=== PATIENT | female | born 2000 | race Caucasian/White ===

== ENCOUNTER 2022-04-22 20:00 | Observation (INO) | payer OTHER ==
[~2022-04-22] VITALS: Ht 157.5 cm; Wt 92.5 kg
[2022-04-22] MEDS ORDERED: FERR325E14 PO (21:22)
[2022-04-22] MEDS ORDERED: PRETAB PO (21:22)
[2022-04-22] MEDS ORDERED: OSC500 PO (21:22)
[2022-04-22 21:23] VITALS: BP 128/65
== END 2022-04-22 22:10 | disposition home or self-care (01) ==
LOC: MLD 20:00
PROVIDERS: ADMIT Obstetrics & Gynecology; ATTEND Obstetrics & Gynecology
DX: O26.893 Other specified pregnancy related conditions, third trimester (principal); R10.13 Epigastric pain; R10.9 Unspecified abdominal pain; Z3A.30 30 weeks gestation of pregnancy
CPT/HCPCS: 76815; G0378; Q0092

== ENCOUNTER 2022-04-24 19:10 | Observation (INO) | payer OTHER ==
[~2022-04-24] VITALS: Ht 160 cm; Wt 92.5 kg
[~2022-04-24 19:10] MED LIST: FERR325E14 PO; OSC500 PO; PRETAB PO
[2022-04-24 21:09] VITALS: BP 110/64
[2022-04-24] MEDS ORDERED: PANTOPRAZOLE 40 MG TABEC PO SCH (21:35)
[2022-04-24] MEDS ORDERED: FAMOTIDINE 20 MG TAB PO SCH (21:35)
== END 2022-04-24 23:40 | disposition home or self-care (01) ==
LOC: MFCC 19:10
PROVIDERS: ADMIT Obstetrics & Gynecology; ATTEND Obstetrics & Gynecology
DX: O26.893 Other specified pregnancy related conditions, third trimester (principal); R10.13 Epigastric pain; O99.891 Other specified diseases and conditions complicating pregnancy; M54.9 Dorsalgia, unspecified; Z3A.30 30 weeks gestation of pregnancy
CPT/HCPCS: G0378

== ENCOUNTER 2022-04-26 01:29 | Inpatient (IN) | payer OTHER ==
[~2022-04-26] VITALS: Ht 152.4 cm; Wt 81.6 kg
[2022-04-26] MEDS: LACTATED RINGERS 1,000 ML IV SCH ×3 (01:00→16:27)
[2022-04-26] MEDS ORDERED: PANTOPRAZOLE 40 MG TABEC PO ONE (02:54)
[2022-04-26] MEDS ORDERED: FAMOTIDINE 20 MG TAB ONE (02:55)
[2022-04-26] MEDS ORDERED: MORPHINE SULFATE 10 MG/ML VIAL ONE ×2 (08:18→16:18)
[2022-04-26] MEDS: MORPHINE SULFATE 5 MG/ML VIAL IVP PRN ×2 (08:22→16:22)
[2022-04-26] MEDS: ONDANSETRON 4 MG/2 ML VIAL IVP PRN ×2 (08:26→16:23)
[2022-04-26] MEDS: FAMOTIDINE 20 MG TAB PO SCH ×2 (08:34→08:41)
[2022-04-26] MEDS: PANTOPRAZOLE 40 MG TABEC PO SCH ×2 (08:34→08:41)
[2022-04-26] MEDS: BETAMETH ACET/BETAMETH NA PH 30 MG/5 ML VIAL IM SCH (09:27)
[2022-04-26] MEDS ORDERED: diphenhydrAMINE 50 MG/ML VIAL IVP ONE (10:10)
[2022-04-26] MEDS: PIPERACILLIN/TAZOBACTAM 3.375 GM in DEXTROSE 5% 50 ML IV SCH ×2 (13:06→21:00)
[2022-04-26] MEDS ORDERED: CAMERA MC ONE (17:16)
[2022-04-27] MEDS: LACTATED RINGERS 1,000 ML IV SCH ×2 (01:00→09:22)
[2022-04-27] MEDS ORDERED: ACETAMINOPHEN 325 MG TAB PO PRN (03:05)
[2022-04-27] MEDS ORDERED: ACETAMINOPHEN 325 MG TAB ONE (03:06)
[2022-04-27] MEDS: PIPERACILLIN/TAZOBACTAM 3.375 GM in DEXTROSE 5% 50 ML IV SCH (05:01)
--- NOTE | 2022-04-27 07:06 | NUR ---
PATIENT HAS BEEN SCREENED AND CATEGORIZED LOW NUTRITION RISK. PATIENT WILL BE SEEN WITHIN 7 DAYS OF ADMISSION. 05/03/22 CRISTEL VEGA MS, RDN
[2022-04-27] MEDS: BETAMETH ACET/BETAMETH NA PH 30 MG/5 ML VIAL IM SCH (09:28)
== END 2022-04-27 12:00 | disposition home or self-care (01) | DRG 566 ==
LOC: MLD 01:29 → OBSVTOIN 09:13 → MFCC 10:39
PROVIDERS: ADMIT Obstetrics & Gynecology; ATTEND Obstetrics & Gynecology
DX: O99.613 Diseases of the digestive system complicating pregnancy, third trimester (principal); K80.10 Calculus of gallbladder with chronic cholecystitis without obstruction; Z3A.30 30 weeks gestation of pregnancy; Z20.822 Contact with and (suspected) exposure to COVID-19; O34.219 Maternal care for unspecified type scar from previous cesarean delivery; O09.33 Supervision of pregnancy with insufficient antenatal care, third trimester
CPT/HCPCS: 36415; 76705; 82565; J0702; J1200; J2270; J2405; J2543; J7060; Q0092

== ENCOUNTER 2022-05-21 03:48 | Observation (INO) | payer OTHER ==
[~2022-05-21] VITALS: Ht 162.6 cm; Wt 93.4 kg
[2022-05-21] MEDS ORDERED: ONDANSETRON 4 MG/2 ML VIAL IVP PRN (04:35)
[2022-05-21] MEDS ORDERED: MORPHINE SULFATE 5 MG/ML VIAL IVP PRN ×2 (04:35→09:00)
[2022-05-21] MEDS ORDERED: MORPHINE SULFATE 10 MG/ML VIAL ONE ×2 (04:46→09:05)
[2022-05-21] MEDS ORDERED: ONDANSETRON 4 MG/2 ML VIAL ONE (04:47)
[2022-05-21] MEDS: LACTATED RINGERS 1,000 ML IV SCH ×3 (04:58→20:23)
[2022-05-21 05:00] VITALS: BP 139/81
[2022-05-21 05:35] LABS: BASOPHILS % (AUTO) 0.1 % (0.0-2.0); EOSINOPHILS # (AUTO) 0.1 K/uL (0-0.4); EOSINOPHILS % (AUTO) 1.1 % (0.0-4.0); HEMATOCRIT 33.2 % (36-48); HEMOGLOBIN 10.8 g/dL (12.0-16.0); LYMPHOCYTES # (AUTO) 2.1 K/uL (2.5-16.5); LYMPHOCYTES % (AUTO) 18.8 % (20.5-51.1); MEAN CORPUSCULAR HEMOGLOBIN 27 pg (27-31); MEAN CORPUSCULAR HGB CONC 33 g/dL (33-37); MEAN CORPUSCULAR VOLUME 83.7 fL (80-94); MONOCYTES # (AUTO) 0.8 K/uL (0.8-1.0); NEUTROPHILS # (AUTO) 8.3 K/uL (1.8-7.7); PLATELET COUNT (AUTO) 193 K/uL (140-450); RED BLOOD CELL COUNT(AUTO) 3.97 MIL/uL (4.20-5.40); RED CELL DISTRIBUTION WIDTH 14.1 % (11.6-13.7); WHITE BLOOD COUNT (AUTO) 11.4 K/uL (4.8-10.8)
[2022-05-21 05:45] LABS: ALBUMIN 2.6 g/dL (3.4-5.0); ANION GAP 9.1 (8-16); CARBON DIOXIDE 27.5 mmol/L (21-32); CREATININE 0.4 mg/dL (0.6-1.3); POTASSIUM 3.6 mmol/L (3.5-5.1); TOTAL BILIRUBIN 0.4 mg/dL (0.0-1.0)
--- NOTE | 2022-05-21 12:28 | NUR ---
PATIENT HAS BEEN SCREENED AND CATEGORIZED LOW NUTRITION RISK. PATIENT WILL BE SEEN WITHIN 7 DAYS OF ADMISSION. 05/27/[address]
[2022-05-21 16:46] LABS: APPEARANCE,URINE CLOUDY (CLEAR); BILIRUBIN,URINE NEGATIVE (NEGATIVE); BLOOD, URINE TRACE (NEGATIVE); COLOR,URINE YELLOW (YELLOW); LEUKOCYTE ESTERASE ,URINE 3+ (NEGATIVE); NITRITE, URINE NEGATIVE (NEGATIVE); RBC,URINE 0-5 /HPF (0-5); UGLUCOSE NEGATIVE (NEGATIVE); WBC,URINE 80-100 /HPF (0-5)
[2022-05-21] MEDS ORDERED: oxyCODONE/APAP 5/325 MG 1 TAB TAB PO PRN (17:30)
[2022-05-21] MEDS ORDERED: ACETAMINOPHEN 325 MG TAB PO PRN (20:10)
--- NOTE | 2022-05-21 21:21 | NUR ---
Pt d/c home in stable condition, antepartum discharge instruction and kick count(cook islander version) given and explained utilizing the voice geospatial imagery intelligence analyst Eufemia with ID No. [id number].
== END 2022-05-21 21:28 | disposition home or self-care (01) ==
LOC: MLD 03:48
PROVIDERS: ADMIT Obstetrics & Gynecology; ATTEND Obstetrics & Gynecology
DX: O26.893 Other specified pregnancy related conditions, third trimester (principal); R10.11 Right upper quadrant pain; Z3A.36 36 weeks gestation of pregnancy
CPT/HCPCS: 36415; 59025; 76705; 80053; 81001; 82150; 83690; 85025; 87086; 96361; 96374; 96375; G0378; J2270; J2405; J7120; Q0092

== ENCOUNTER 2022-05-27 23:05 | Observation (INO) | payer OTHER ==
[~2022-05-27] VITALS: Ht 162.6 cm; Wt 93.4 kg
[2022-05-27] MEDS ORDERED: LACTATED RINGERS 1,000 ML IV SCH (23:40)
[2022-05-28 00:50] VITALS: BP 164/84
[2022-05-28] MEDS ORDERED: MORPHINE SULFATE 5 MG/ML VIAL IVP PRN (01:55)
[2022-05-28] MEDS ORDERED: MORPHINE SULFATE 10 MG/ML VIAL ONE ×2 (02:29→12:22)
[2022-05-28 02:34] VITALS: BP 136/76
[2022-05-28] MEDS: ONDANSETRON 4 MG/2 ML VIAL IVP PRN ×2 (02:35→12:42)
--- NOTE | 2022-05-28 14:26 | NUR ---
PATIENT HAS BEEN SCREENED AND CATEGORIZED LOW NUTRITION RISK. PATIENT WILL BE SEEN WITHIN 7 DAYS OF ADMISSION. 06/03/[address]
== END 2022-05-28 17:50 | disposition home or self-care (01) ==
LOC: MLD 23:05
PROVIDERS: ADMIT Obstetrics & Gynecology; ATTEND Obstetrics & Gynecology
DX: O99.891 Other specified diseases and conditions complicating pregnancy (principal); K80.20 Calculus of gallbladder without cholecystitis without obstruction; Z3A.37 37 weeks gestation of pregnancy
CPT/HCPCS: 59025; 76805; 81000; 96361; 96374; 96375; 96376; G0378; J2270; J2405; Q0092

== ENCOUNTER 2022-06-01 04:18 | Inpatient (IN) | payer OTHER ==
[~2022-06-01] VITALS: Ht 160 cm; Wt 93.4 kg
[2022-06-01] MEDS ORDERED: NACL 0.9% 1,000 ML IV SCH (04:55)
[2022-06-01 04:56] VITALS: BP 122/74
[2022-06-01] MEDS ORDERED: LACTATED RINGERS 1,000 ML IV SCH (05:55)
[2022-06-01 06:30] LABS: BASOPHILS # (AUTO) 0.1 K/uL (0.00-0.22); BASOPHILS % (AUTO) 0.6 % (0.0-2.0); EOSINOPHILS # (AUTO) 0.1 K/uL (0-0.4); EOSINOPHILS % (AUTO) 0.9 % (0.0-4.0); HEMATOCRIT 36.3 % (36-48); LYMPHOCYTES # (AUTO) 2.3 K/uL (2.5-16.5); LYMPHOCYTES % (AUTO) 23.8 % (20.5-51.1); MEAN CORPUSCULAR HEMOGLOBIN 27 pg (27-31); MEAN CORPUSCULAR HGB CONC 33 g/dL (33-37); MEAN CORPUSCULAR VOLUME 82.7 fL (80-94); MONOCYTES # (AUTO) 0.7 K/uL (0.8-1.0); MONOCYTES % (AUTO) 6.8 % (1.7-9.3); NEUTROPHILS # (AUTO) 6.6 K/uL (1.8-7.7); NEUTROPHILS % (AUTO) 67.9 % (42.2-75.2); PLATELET COUNT (AUTO) 195 K/uL (140-450); RED CELL DISTRIBUTION WIDTH 14.4 % (11.6-13.7); WHITE BLOOD COUNT (AUTO) 9.8 K/uL (4.8-10.8)
[2022-06-01 06:32] LABS: APPEARANCE,URINE CLEAR (CLEAR); BILIRUBIN,URINE NEGATIVE (NEGATIVE); BLOOD, URINE NEGATIVE (NEGATIVE); COLOR,URINE YELLOW (YELLOW); LEUKOCYTE ESTERASE ,URINE 1+ (NEGATIVE); NITRITE, URINE NEGATIVE (NEGATIVE); UGLUCOSE NEGATIVE (NEGATIVE)
[2022-06-01] MEDS ORDERED: ceFAZolin 1,000 MG VIAL ONE (06:43)
[2022-06-01 06:45] LABS: BARBITURATE, URINE NEGATIVE ng/ml (NEG <=200); BENZODIAZEPINE, URINE NEGATIVE ng/mL (NEG <=200); CANNABINOID, URINE NEGATIVE ng/mL (NEG <=50); COCAINE, URINE NEGATIVE ng/mL (NEG <=300); OPIATE, URINE NEGATIVE ng/mL (NEG <=2000); PHENCYCLIDINE SCREEN,URINE NEGATIVE ng/mL (NEG <=25)
[2022-06-01 06:58] LABS: OTHER CASTS, URINE None Seen /LPF (None Seen); RBC,URINE 0-5 /HPF (0-5); WBC,URINE 0-5 /HPF (0-5)
[2022-06-01 07:00] LABS: PROTHROMBIN TIME 9.3 secs (10.8-13.4)
[2022-06-01] MEDS ORDERED: MORPHINE PRES FREE 10 MG/10 ML AMP IV ONE (07:00)
[2022-06-01] MEDS ORDERED: ONDANSETRON 4 MG/2 ML VIAL ONE (07:00)
[2022-06-01 07:05] LABS: ALBUMIN 2.7 g/dL (3.4-5.0); CARBON DIOXIDE 25.7 mmol/L (21-32); CREATININE 0.4 mg/dL (0.6-1.3); POTASSIUM 3.7 mmol/L (3.5-5.1); TOTAL BILIRUBIN 0.6 mg/dL (0.0-1.0)
[2022-06-01] MEDS ORDERED: ONDANSETRON 4 MG/2 ML VIAL IVP PRN (08:15)
[2022-06-01] MEDS ORDERED: NALOXONE 0.4 MG/ML VIAL IVP PRN (08:15)
[2022-06-01] MEDS ORDERED: OXYTOCIN 20 UNITS in LACTATED RINGERS 1,000 ML IV SCH ×3 (08:15→19:40)
--- NOTE | 2022-06-01 09:18 | NUR ---
PATIENT HAS BEEN SCREENED AND CATEGORIZED LOW NUTRITION RISK. PATIENT WILL BE SEEN WITHIN 7 DAYS OF ADMISSION. 06/01/22-06/07/[address]
[2022-06-01] MEDS ORDERED: OXYTOCIN 20 UNITS/LR PREMIX 1,000 ML IV ONE ×2 (09:24→20:46)
[2022-06-01] MEDS ORDERED: KETOROLAC 30 MG/ML VIAL IVP ONE (09:55)
[2022-06-01] MEDS: KETOROLAC 30 MG/ML VIAL IVP PRN ×2 (09:57→22:09)
[2022-06-01] MEDS: diphenhydrAMINE 50 MG/ML VIAL IVP PRN (16:43)
[2022-06-01] MEDS ORDERED: MEASLES, MUMPS, AND RUBELLA 1 VIAL SQVAC PRN (19:40)
[2022-06-01] MEDS ORDERED: oxyCODONE/APAP 5/325 MG 1 TAB TAB PO PRN (19:40)
[2022-06-01] MEDS ORDERED: METHYLERGONOVINE 0.2 MG/ML AMP IM PRN (19:40)
[2022-06-01] MEDS ORDERED: IBUPROFEN 800 MG TAB PO PRN (19:40)
[2022-06-01] MEDS ORDERED: TEMAZEPAM 15 MG CAP PO PRN (19:40)
[2022-06-01] MEDS ORDERED: SIMETHICONE 80 MG TAB.CHEW PO PRN (19:40)
[2022-06-01] MEDS: bisacodyL 5 MG TABEC PO SCH (20:59)
[2022-06-02] MEDS: diphenhydrAMINE 50 MG/ML VIAL IVP PRN (01:27)
[2022-06-02] MEDS ORDERED: OXYTOCIN 20 UNITS/LR PREMIX 1,000 ML IV ONE (04:44)
[2022-06-02 05:57] LABS: BASOPHILS % (AUTO) 0.4 % (0.0-2.0); EOSINOPHILS # (AUTO) 0.2 K/uL (0-0.4); EOSINOPHILS % (AUTO) 2.1 % (0.0-4.0); HEMATOCRIT 30.8 % (36-48); HEMOGLOBIN 10.3 g/dL (12.0-16.0); LYMPHOCYTES # (AUTO) 2.9 K/uL (2.5-16.5); LYMPHOCYTES % (AUTO) 26.7 % (20.5-51.1); MEAN CORPUSCULAR HEMOGLOBIN 28 pg (27-31); MEAN CORPUSCULAR HGB CONC 34 g/dL (33-37); MEAN CORPUSCULAR VOLUME 82.9 fL (80-94); MONOCYTES # (AUTO) 0.6 K/uL (0.8-1.0); MONOCYTES % (AUTO) 5.9 % (1.7-9.3); NEUTROPHILS % (AUTO) 64.9 % (42.2-75.2); PLATELET COUNT (AUTO) 174 K/uL (140-450); RED BLOOD CELL COUNT(AUTO) 3.72 MIL/uL (4.20-5.40); RED CELL DISTRIBUTION WIDTH 14.4 % (11.6-13.7); WHITE BLOOD COUNT (AUTO) 10.7 K/uL (4.8-10.8)
[2022-06-02] MEDS: oxyCODONE/APAP 5/325 MG 1 TAB TAB PO PRN ×2 (07:04→12:28)
[2022-06-02] MEDS ORDERED: MEASLES, MUMPS, AND RUBELLA 1 VIAL SQVAC PRN (07:20)
[2022-06-02] MEDS: bisacodyL 5 MG TABEC PO SCH (09:21)
== END 2022-06-02 14:55 | disposition home or self-care (01) | DRG 540 ==
LOC: MLD 04:18 → OBSVTOIN 05:50 → MFCC 10:15
PROVIDERS: ADMIT Obstetrics & Gynecology; ATTEND Obstetrics & Gynecology
PROC: 10D00Z1 Extraction of Products of Conception, Low, Open Approach (ICD-10-PCS; principal; 2022-06-01 07:00)
DX: O99.62 Diseases of the digestive system complicating childbirth (principal); K81.9 Cholecystitis, unspecified; O34.211 Maternal care for low transverse scar from previous cesarean delivery; Z20.822 Contact with and (suspected) exposure to COVID-19; Z37.0 Single live birth; Z3A.37 37 weeks gestation of pregnancy
CPT/HCPCS: 36415; 51702; 80053; 80305; 81001; 85025; 85610; 85730; 86592; 86762; 86886; 86900; 86901; 87086; 87340; J0690; J1200; J1885; J2270; J2405; J2590; J7060; J7120

== ENCOUNTER 2022-08-05 14:42 | Inpatient (IN) | payer OTHER ==
[~2022-08-05] VITALS: Ht 157.5 cm; Wt 84.1 kg
[2022-08-05 15:14] VITALS: BP 111/66
[2022-08-05] MEDS ORDERED: ONDANSETRON 4 MG/2 ML VIAL IVP ONE (15:40)
[2022-08-05] MEDS ORDERED: MORPHINE SULFATE 4 MG/ML SYR IVP ONE (15:40)
[2022-08-05] MEDS ORDERED: NACL 0.9% 1,000 ML IV SCH (15:40)
[2022-08-05 15:54] LABS: BASOPHILS % (AUTO) 0.6 % (0.0-2.0); EOSINOPHILS # (AUTO) 0.1 K/uL (0-0.4); HEMATOCRIT 37.3 % (36-48); HEMOGLOBIN 12.3 g/dL (12.0-16.0); LYMPHOCYTES # (AUTO) 2.3 K/uL (2.5-16.5); LYMPHOCYTES % (AUTO) 38.1 % (20.5-51.1); MEAN CORPUSCULAR HEMOGLOBIN 27 pg (27-31); MEAN CORPUSCULAR HGB CONC 33 g/dL (33-37); MEAN CORPUSCULAR VOLUME 81.3 fL (80-94); MONOCYTES # (AUTO) 0.4 K/uL (0.8-1.0); MONOCYTES % (AUTO) 5.9 % (1.7-9.3); NEUTROPHILS # (AUTO) 3.2 K/uL (1.8-7.7); NEUTROPHILS % (AUTO) 53.4 % (42.2-75.2); PLATELET COUNT (AUTO) 253 K/uL (140-450); RED BLOOD CELL COUNT(AUTO) 4.58 MIL/uL (4.20-5.40); RED CELL DISTRIBUTION WIDTH 15.8 % (11.6-13.7); WHITE BLOOD COUNT (AUTO) 6.1 K/uL (4.8-10.8)
[2022-08-05 16:22] LABS: ALBUMIN 3.8 g/dL (3.4-5.0); CARBON DIOXIDE 27.8 mmol/L (21-32); CREATININE 0.6 mg/dL (0.6-1.3); POTASSIUM 3.8 mmol/L (3.5-5.1)
--- NOTE | 2022-08-05 16:22 | NUR ---
Satnam clement in [facility] - 08/05/22 at 1625 by CELESTE Ambulated to bed 04 with steady/even gait.
[2022-08-05 16:26] LABS: APPEARANCE,URINE CLEAR (CLEAR); BILIRUBIN,URINE NEGATIVE (NEGATIVE); BLOOD, URINE NEGATIVE (NEGATIVE); COLOR,URINE YELLOW (YELLOW); LEUKOCYTE ESTERASE ,URINE NEGATIVE (NEGATIVE); NITRITE, URINE NEGATIVE (NEGATIVE); UGLUCOSE NEGATIVE (NEGATIVE)
--- NOTE | 2022-08-05 16:54 | NUR ---
Patient brought back from [place] via wheelchair to bed 4.
--- NOTE | 2022-08-05 17:10 | NUR ---
21 Y/O FEMALE C/O RUQ ABD PAIN RADIATING TO BACK X 4DAYS. +NAUSEA/VOMITING. DENIES DIARRHEA/DYSURIA. PT DENIES TAKING ANYTHING FOR PAIN AT HOME. PT REPORTS BEING DIAGNOSED WITH GALLSTONES WHEN SHE WAS 30 WEEKS AND STATES IT FEELS LIKE THE SAME PAIN. PT A/O X4 WITH EVEN AND UNLABORED RESPIRATIONS PMH: GALLSTONES ALLERGIES:FAMOTIDINE, PANTOPRAZOLE
[2022-08-05] MEDS ORDERED: KETOROLAC 30 MG/ML VIAL IVP ONE (18:00)
--- NOTE | 2022-08-05 18:26 | NUR ---
JUAN FRANCISCO MUNSON SAMPLE COLLECTED AND WALKED TO LAB
[2022-08-05] MEDS ORDERED: KCL 20 MEQ/WATER INJ PREMIX 200 ML IV PRN (18:55)
[2022-08-05] MEDS ORDERED: MAGNESIUM OXIDE 400 MG TAB PO PRN (18:55)
[2022-08-05] MEDS ORDERED: ACETAMINOPHEN 325 MG TAB PO PRN (18:55)
[2022-08-05] MEDS ORDERED: MAG SULF 2000 MG/WATER PREMIX 50 ML IV PRN (18:55)
[2022-08-05] MEDS ORDERED: POTASSIUM CHLORIDE 10 MEQ TABER PO PRN (18:55)
[2022-08-05] MEDS ORDERED: HYDROcodone/APAP 5/325 MG 1 TAB TAB PO PRN (18:55)
[2022-08-05] MEDS ORDERED: [UNRECOGNIZED DRUG - CODE] PO (19:10)
--- NOTE | 2022-08-05 19:17 | NUR ---
REPORT GIVEN TO MARION WARE, TRANSFER OF CARE AT THIS TIME.
[2022-08-05] MEDS: NACL 0.9% 1,000 ML IV SCH (21:53)
--- NOTE | 2022-08-05 22:20 | NUR ---
PT MEDICATED WITH NORCO FOR COELLO RATED 5/10 WILL CONTINUE TO MONITOR STATUS. PT ADMITTED. HOLDING IN ER FOR BED. PT STABLE AT THIS TIME.
--- NOTE | 2022-08-06 06:43 | NUR ---
Nimco BURTON CALLED AND INFORMED THAT THE PT WHILE ASLEEP HR DECREASES INTO THE LOW 40'S. PT ASYMPTOMATIC. ORDER OBTAINED TO UPGRADE TO TELE.
--- NOTE | 2022-08-06 07:20 | NUR ---
Pt endorsed to dayshift RN in stable condtion. Pt lio at time of endorsement. Pt sleeping, no distress noted at this time.
--- NOTE | 2022-08-06 07:38 | NUR ---
Report recieved from JEANIE Abreu for transfer of care.
[2022-08-06] MEDS: MORPHINE SULFATE 4 MG/ML SYR IVP PRN ×2 (08:06→15:03)
[2022-08-06] MEDS: ONDANSETRON 4 MG/2 ML VIAL IVP PRN ×3 (08:08→21:25)
[2022-08-06] MEDS: NACL 0.9% 1,000 ML IV SCH ×2 (08:38→18:23)
--- NOTE | 2022-08-06 08:45 | NUR ---
Lab at bedside.
--- NOTE | 2022-08-06 09:00 | NUR ---
Dr. Denise evaluating patient at bedside.
[2022-08-06 09:38] LABS: BASOPHILS % (AUTO) 0.6 % (0.0-2.0); EOSINOPHILS # (AUTO) 0.2 K/uL (0-0.4); EOSINOPHILS % (AUTO) 3.2 % (0.0-4.0); HEMATOCRIT 33.4 % (36-48); HEMOGLOBIN 11.2 g/dL (12.0-16.0); LYMPHOCYTES # (AUTO) 2.6 K/uL (2.5-16.5); LYMPHOCYTES % (AUTO) 46.8 % (20.5-51.1); MEAN CORPUSCULAR HEMOGLOBIN 28 pg (27-31); MEAN CORPUSCULAR HGB CONC 33 g/dL (33-37); MEAN CORPUSCULAR VOLUME 82.6 fL (80-94); MONOCYTES # (AUTO) 0.4 K/uL (0.8-1.0); MONOCYTES % (AUTO) 6.9 % (1.7-9.3); NEUTROPHILS # (AUTO) 2.3 K/uL (1.8-7.7); NEUTROPHILS % (AUTO) 42.5 % (42.2-75.2); PLATELET COUNT (AUTO) 199 K/uL (140-450); RED BLOOD CELL COUNT(AUTO) 4.05 MIL/uL (4.20-5.40); RED CELL DISTRIBUTION WIDTH 15.5 % (11.6-13.7); WHITE BLOOD COUNT (AUTO) 5.5 K/uL (4.8-10.8)
--- NOTE | 2022-08-06 09:41 | NUR ---
Patient ambulated to restroom with steady gait.
[2022-08-06 09:43] LABS: ALBUMIN 3.1 g/dL (3.4-5.0); ANION GAP 10.3 (8-16); BILIRUBIN,DIRECT 0.8 mg/dL (0.0-0.3); CARBON DIOXIDE 27.7 mmol/L (21-32); CREATININE 0.6 mg/dL (0.6-1.3); MAGNESIUM 1.9 mg/dL (1.8-2.4); TOTAL BILIRUBIN 1.7 mg/dL (0.0-1.0)
[2022-08-06] MEDS: DOCUSATE SODIUM 100 MG GELCAP PO SCH (09:50)
--- NOTE | 2022-08-06 10:01 | NUR ---
Patient's diet status was updated. Patient was offered a food tray.
--- NOTE | 2022-08-06 11:57 | NUR ---
Patient is complaining of pain to Left AC IV site, patient requested new IV. New IV to Left Wrist 22 gauge.
--- NOTE | 2022-08-06 12:05 | NUR ---
Patient was offered lunch tray, patient is sitting up eating lunch.
--- NOTE | 2022-08-06 14:06 | NUR ---
Patient ambulated to restroom with steady gait.
--- NOTE | 2022-08-06 14:26 | NUR ---
PATIENT HAS BEEN SCREENED AND CATEGORIZED LOW NUTRITION RISK. PATIENT WILL BE SEEN WITHIN 7 DAYS OF ADMISSION. 08/12/[address]
--- NOTE | 2022-08-06 14:48 | NUR ---
DC PLANNING: SPOKE WITH DR EASLEY DISCUSSED THE NEED FOR MRCP PER DR EASLEY WILL COME TO SEE PATIENT HOLD FOR MRCP FOR NOW UNTIL DR EASLEY SEES PATIENT. CM TO FOLLOW
--- NOTE | 2022-08-06 16:16 | NUR ---
Patient will be admitted to care of Dr. Denise. Admited to Telemetry. Will go to room 104-b. Belongings list completed. Report to JEANIE Fay.
--- NOTE | 2022-08-06 16:20 | NUR ---
GOT REPORT FROM THE ER NURSE, PT AMBULATED TO BED THE ADMISSION PAPER WITH TRIAL JUDGE STARTED. [id number]
--- NOTE | 2022-08-06 16:40 | NUR ---
The patient's care was reviewed and supervised by ED Agency Nurse 9, RN, RN.
[2022-08-06 18:41] VITALS: BP 96/46
[2022-08-06 18:49] VITALS: BP 96/46
--- NOTE | 2022-08-06 19:05 | NUR ---
RECEIVED BEDSIDE REPORT FROM DAY SHIFT NURSE, PATIENT IS AWAKE, ALERT, AND COOPERATIVE. RESPIRATION IS EVEN UNLABORED ON ROOM AIR. NO DISTRESS NOTED. SKIN IS WARM AND DRY. IV PATENT AND INTACT. PLAN OF CARE DISCUSSED. ALL SAFETY MEASURE IN PLACE. BED IS AT LOW POSITION. CALL LIGHT WITHIN REACH. WILL CONTINUE TO MONITOR
--- NOTE | 2022-08-06 21:25 | NUR ---
PATIENT COMPLAINED OF FEELING NAUSEOUS AND HEADACHE. PRN TYLENOL AND ANTI-EMETIC GIVEN PER ORDER. WILL CONTINUE TO MONITOR
[2022-08-07] VITALS: BP 110/60
--- NOTE | 2022-08-07 00:20 | NUR ---
VITALS WERE TAKEN. NO DISTRESS NOTED.
--- NOTE | 2022-08-07 03:05 | NUR ---
MADE ROUNDS, PATIENT AWAKE ON THE PHONE NO DISTRESS NOTED
[2022-08-07 04:00] VITALS: BP 100/63
--- NOTE | 2022-08-07 04:10 | NUR ---
VITALS WERE TAKEN. NO DISTRESS NOTED
--- NOTE | 2022-08-07 05:04 | NUR ---
PATIENT COMPLAINED OF PAIN ON THE IV INSERTION. INSERT NEW IV ON THE RIGHT HAND 20G. WILL CONTINUE TO MONITOR
[2022-08-07 07:06] LABS: BASOPHILS % (AUTO) 0.6 % (0.0-2.0); EOSINOPHILS # (AUTO) 0.2 K/uL (0-0.4); EOSINOPHILS % (AUTO) 3.7 % (0.0-4.0); HEMATOCRIT 31.6 % (36-48); HEMOGLOBIN 10.6 g/dL (12.0-16.0); LYMPHOCYTES # (AUTO) 2.8 K/uL (2.5-16.5); LYMPHOCYTES % (AUTO) 49.7 % (20.5-51.1); MEAN CORPUSCULAR HEMOGLOBIN 27 pg (27-31); MEAN CORPUSCULAR HGB CONC 34 g/dL (33-37); MEAN CORPUSCULAR VOLUME 81.8 fL (80-94); MONOCYTES # (AUTO) 0.3 K/uL (0.8-1.0); MONOCYTES % (AUTO) 5.5 % (1.7-9.3); NEUTROPHILS # (AUTO) 2.3 K/uL (1.8-7.7); NEUTROPHILS % (AUTO) 40.5 % (42.2-75.2); PLATELET COUNT (AUTO) 205 K/uL (140-450); RED BLOOD CELL COUNT(AUTO) 3.87 MIL/uL (4.20-5.40); RED CELL DISTRIBUTION WIDTH 15.6 % (11.6-13.7); WHITE BLOOD COUNT (AUTO) 5.6 K/uL (4.8-10.8)
--- NOTE | 2022-08-07 07:18 | NUR ---
RECEIVED REPORT FROM NIGHTSHIFT NURSE ABHISHEK FOR CONTINUITY OF CARE. PT IS CURRENTLY ASLEEP, A/OX4, LATVIAN SPEAKING. BREATHING IS EVEN, REGULAR AND UNLABORED ON ROOM AIR. PT IS CONTINENT OF THE BOWEL AND BLADDER, AND IS ABLE TO AMBULATE INDEPENDENTLY. SKIN IS INTACT. NO SIGNS OF PAIN OR DISTRESS AT THIS TIME.
--- NOTE | 2022-08-07 07:18 | NUR ---
ENDORSED PATIENT TO DAY SHIFT NURSE FOR CONTINUITY OF CARE
[2022-08-07 07:25] LABS: ALBUMIN 3.1 g/dL (3.4-5.0); ANION GAP 10.9 (8-16); CARBON DIOXIDE 25.5 mmol/L (21-32); CREATININE 0.6 mg/dL (0.6-1.3); MAGNESIUM 1.8 mg/dL (1.8-2.4); POTASSIUM 3.4 mmol/L (3.5-5.1); TOTAL BILIRUBIN 0.8 mg/dL (0.0-1.0)
[2022-08-07 08:00] VITALS: BP 103/59
--- NOTE | 2022-08-07 09:00 | NUR ---
PT VISUALLY ASSESSED, CURRENTLY DENIES PAIN OR DISTRESS AT THIS TIME. PT REQUESTED MORE INFORMATION ON POSSIBLE SURGERY.
[2022-08-07] MEDS: DOCUSATE SODIUM 100 MG GELCAP PO SCH (09:20)
[2022-08-07] MEDS: NACL 0.9% 1,000 ML IV SCH ×2 (09:20→21:57)
[2022-08-07] MEDS: ONDANSETRON 4 MG/2 ML VIAL IVP PRN (10:56)
[2022-08-07] MEDS: MORPHINE SULFATE 4 MG/ML SYR IVP PRN (10:56)
--- NOTE | 2022-08-07 10:56 | NUR ---
PT COMPLAINED OF 8/10 ABDOMINAL PAIN, ADMINISTERED PRN MORPHINE AND ZOFRAN. REVIEWED AND DISCUSSED CONSENT FORM FOR LAPAROSCOPIC CHOLECYSTECTOMY, PT VERBALIZED UNDERSTANDING AND SIGNED FORM.
[2022-08-07 12:00] VITALS: BP 106/74
--- NOTE | 2022-08-07 12:00 | NUR ---
PT CURRENTLY SLEEPING, NO SIGNS OF PAIN OR DISTRESS NOTED AT THIS TIME.
--- NOTE | 2022-08-07 14:00 | NUR ---
PT VISUALLY ASSESSED, CURRENTLY DENIES PAIN OR DISTRESS AT THIS TIME.
[2022-08-07 16:00] VITALS: BP 120/73
--- NOTE | 2022-08-07 16:30 | NUR ---
OR NURSE ARRIVED TO TRANSPORT PT TO SURGERY FOR LAP CELE. PT AWARE, ALL CONSENTS SIGNED. PT IN STABLE CONDITION.
[2022-08-07] MEDS ORDERED: BUPIVACAINE MPF 0.25% 10 ML VIAL INJ ONE (16:47)
[2022-08-07] MEDS ORDERED: LIDOCAINE/EPI MPF 1%1:200000 30 ML VIAL INJ ONE (16:47)
[2022-08-07] MEDS ORDERED: ROCURONIUM 50 MG/5 ML VIAL IV ONE ×2 (16:48→17:15)
[2022-08-07] MEDS ORDERED: ceFAZolin 2,000 MG VIAL ONE (16:48)
[2022-08-07] MEDS ORDERED: fentaNYL citrate 0.05 MG/ML VIAL ONE (16:48)
[2022-08-07] MEDS ORDERED: SUCCINYLCHOLINE CHLORIDE 200 MG/10 ML VIAL IVP ONE (16:52)
[2022-08-07] MEDS ORDERED: HYDROcodone/APAP 5/325 MG 1 TAB TAB PO PRN (17:00)
[2022-08-07] MEDS ORDERED: SUGAMMADEX SODIUM 200 MG/2 ML VIAL IV ONE ×2 (17:15→18:11)
[2022-08-07] MEDS ORDERED: SEVOFLURANE 250 ML BTL INH ONE (17:15)
[2022-08-07] MEDS ORDERED: METOCLOPRAMIDE 10 MG/2 ML INJ VIAL ONE (17:15)
[2022-08-07] MEDS ORDERED: DEXAMETHASONE 4 MG/ML VIAL ONE ×2 (17:15→17:27)
[2022-08-07] MEDS ORDERED: MEPERIDINE 50 MG/ML SYR ONE ×2 (17:15→18:05)
[2022-08-07] MEDS ORDERED: PROPOFOL 200 MG/20 ML VIAL IV ONE (17:15)
[2022-08-07] MEDS ORDERED: ONDANSETRON 4 MG/2 ML VIAL ONE (17:27)
[2022-08-07] MEDS ORDERED: MEPERIDINE 25 MG/ML SYR IVP PRN (18:25)
[2022-08-07] MEDS ORDERED: ONDANSETRON 4 MG/2 ML VIAL IVP PRN (18:25)
[2022-08-07] MEDS ORDERED: diphenhydrAMINE 50 MG/ML VIAL IVP PRN (18:25)
[2022-08-07] MEDS ORDERED: LACTATED RINGERS 1,000 ML IV SCH (18:25)
[2022-08-07] MEDS: HYDROmorphone 1 MG/ML AMP IVP PRN ×5 (18:45→21:57)
[2022-08-07] MEDS ORDERED: HYDROmorphone PFS 2 MG/ML SYR ONE (18:52)
--- NOTE | 2022-08-07 19:29 | NUR ---
ENDORSED PT TO NIGHTSKSFT NURSE JORGENSEN FOR CONTINUITY OF CARE. PT STILL NOT RETURNED FROM OR.
--- NOTE | 2022-08-07 19:30 | NUR ---
RECEIVED REPORT FROM OR GENARO YBARRA. PT STABLE. NO S/S OF DISTRESS. ALL SAFETY MEASURES IN PLACE. RETURNED FROM OR. ENGLISH SPEAKING
[2022-08-07 20:00] VITALS: BP 133/70
--- NOTE | 2022-08-07 20:00 | NUR ---
ENDORSED TO REGISTRY NURSE
[2022-08-08] VITALS: BP 130/82
[2022-08-08] MEDS: HYDROmorphone 1 MG/ML AMP IVP PRN (03:34)
[2022-08-08 04:00] VITALS: BP 128/88
--- NOTE | 2022-08-08 07:35 | NUR ---
RECEIVED REPORT FROM CRAFT CENTER DIRECTOR NURSE FOR CONTINUITY OF CARE. AAOX4, COOPERATIVE, SKIN INTACT, IV SITE INTACT, PATENT, INFUSING IVF PER MD ORDERS. REVIEWED PLAN OF CARE WITH PATIENT. VERBALIZED UNDERSTANDING. SAFETY MEASURES IN PLACE, CALL LIGHT WITHIN REACH. WILL CONTINUE TO MONITOR.
[2022-08-08 07:36] LABS: ALBUMIN 3.6 g/dL (3.4-5.0); ANION GAP 14.5 (8-16); CARBON DIOXIDE 25.3 mmol/L (21-32); CREATININE 0.6 mg/dL (0.6-1.3); MAGNESIUM 1.8 mg/dL (1.8-2.4); POTASSIUM 3.8 mmol/L (3.5-5.1); TOTAL BILIRUBIN 0.7 mg/dL (0.0-1.0)
[2022-08-08 07:52] LABS: BASOPHILS % (AUTO) 0.2 % (0.0-2.0); HEMOGLOBIN 11.7 g/dL (12.0-16.0); LYMPHOCYTES # (AUTO) 1.5 K/uL (2.5-16.5); LYMPHOCYTES % (AUTO) 19.9 % (20.5-51.1); MEAN CORPUSCULAR HEMOGLOBIN 27 pg (27-31); MEAN CORPUSCULAR HGB CONC 33 g/dL (33-37); MEAN CORPUSCULAR VOLUME 81.6 fL (80-94); MONOCYTES # (AUTO) 0.3 K/uL (0.8-1.0); MONOCYTES % (AUTO) 4.5 % (1.7-9.3); NEUTROPHILS # (AUTO) 5.6 K/uL (1.8-7.7); NEUTROPHILS % (AUTO) 75.4 % (42.2-75.2); PLATELET COUNT (AUTO) 254 K/uL (140-450); RED BLOOD CELL COUNT(AUTO) 4.29 MIL/uL (4.20-5.40); RED CELL DISTRIBUTION WIDTH 15.5 % (11.6-13.7); WHITE BLOOD COUNT (AUTO) 7.4 K/uL (4.8-10.8)
[2022-08-08 08:00] VITALS: BP 129/76
[2022-08-08] MEDS: DOCUSATE SODIUM 100 MG GELCAP PO SCH (08:57)
--- NOTE | 2022-08-08 08:57 | NUR ---
SCHEDULED MEDICATIONS DUE GIVEN. WILL CONTINUE TO MONITOR.
[2022-08-08] MEDS: NACL 0.9% 1,000 ML IV SCH (09:27)
--- NOTE | 2022-08-08 09:30 | NUR ---
INFORMED PATIENT TO USE INCENTIVE SPIROMETRY 10 TIMES EVERY HOUR. AUGUSTIN SRT
--- NOTE | 2022-08-08 09:30 | NUR ---
COMPLAINS OF RIGHT SHOULDER PAIN THAT STARTED THIS AM. NORCO PO PRN GIVEN AT THIS TIME. MOTIVATED PATIENT TO AMBULATE AROUND HALLWAYS TO HELP DECREASE PAIN. VERBALIZED UNDERSTANDING. WILL CONTINUE TO MONITOR.
[2022-08-08] MEDS ORDERED: DOCU-299 PO (10:30)
[2022-08-08] MEDS ORDERED: ACET-1182 PO (10:30)
[2022-08-08] MEDS ORDERED: ACET-9525 PO (10:30)
[2022-08-08 12:00] VITALS: BP 130/86
--- NOTE | 2022-08-08 14:00 | NUR ---
DISCHARGE INSTRUCTIONS PROVIDED TO PATIENT IN PREFERRED LANGUAGE OF CITIZ[place] OF [place] USING METAL INSPECTOR [id number]. INSTRUCTIONS PROVIDED ON NEW/CHANGED MEDICATION REGIMEN, SIDE EFFECTS, AND CARE MANAGEMENT OF WOUND CARE. ANSWERED ALL OF PATIENT'S QUESTIONS REGARDING DISCHARGE. PATIENT'S AT LOBBY TO TAKE PATIENT HOME. IV SITE REMOVED WITH MINIMAL BLOOD AND LUMEN COMPLETELY INTACT. ID BANDS REMOVED ESCORTED PATIENT DOWN TO LOBBY VIA WHEELCHAIR. PATIENT DISCHARGED AT THIS TIME IN STABLE CONDITION VIA PRIVATE VEHICLE.
== END 2022-08-08 14:03 | disposition home or self-care (01) | DRG 263 ==
LOC: MED 14:42 → MMU 18:53 → MTU 08-06 16:04
PROVIDERS: ADMIT Internal Medicine; ATTEND Internal Medicine
PROC: BF131ZZ Fluoroscopy of Gallbladder and Bile Ducts using Low Osmolar Contrast (ICD-10-PCS; 2022-08-07)
PROC: 0FT44ZZ Resection of Gallbladder, Percutaneous Endoscopic Approach (ICD-10-PCS; principal; 2022-08-07 15:30)
DX: K80.70 Calculus of gallbladder and bile duct without cholecystitis without obstruction (principal); K76.0 Fatty (change of) liver, not elsewhere classified; E66.9 Obesity, unspecified; Z20.822 Contact with and (suspected) exposure to COVID-19; R74.01 Elevation of levels of liver transaminase levels; Z88.8 Allergy status to other drugs, medicaments and biological substances; Z79.899 Other long term (current) drug therapy; Z68.33 Body mass index [BMI] 33.0-33.9, adult
CPT/HCPCS: 36415; 76705; 77003; 80053; 81003; 82247; 82248; 83690; 83735; 85025; 87081; 88304; 94010; 96361; 96374; 96375; 99285; J0330; J1100; J1170; J1885; J2001; J2175; J2270; J2405; J2704; J2765; J3010; J3490; Q0092